=== PATIENT | male | born 1970 | race Caucasian/White ===

== ENCOUNTER 2025-01-14 10:40 | Inpatient (IN) | payer OTHER ==
[2025-01-14 11:21] VITALS: BMI 25.5
[2025-01-14] MEDS ORDERED: hydrOXYzine PAMOATE 25 MG CAPSULE (FP) PO PRN (11:52)
[2025-01-14] MEDS ORDERED: NICOTINE POLACRILEX 2 MG GUM BUC PRN (11:52)
[2025-01-14] MEDS ORDERED: ACETAMINOPHEN 325 MG TABLET (FP) PO PRN (11:52)
[2025-01-14] MEDS ORDERED: MAGNESIUM HYDROX 2400MG/30ML ORAL SUSPENSION 30 ML CUP PO PRN (11:52)
[2025-01-14] MEDS ORDERED: POLYETHYLENE GLYCOL (HEALTHYLAX) 3350 17 GM PACKET PO PRN (11:52)
[2025-01-14] MEDS ORDERED: BENZONATATE 200 MG CAPSULE PO PRN (11:52)
[2025-01-14] MEDS ORDERED: LOPERAMIDE HCL 2 MG CAPSULE PO PRN (11:52)
[2025-01-14] MEDS ORDERED: NICOTINE POLACRILEX 2 MG LOZENGE BC PRN (11:52)
[2025-01-14] MEDS ORDERED: P-EPHED 60MG/TRIPROLIDI 2.5MG TABLET PO PRN (11:52)
[2025-01-14] MEDS ORDERED: BENZOCAINE/MENTHOL (CHLORASEPTIC ) LOZENGE MM PRN (11:52)
[2025-01-14] MEDS ORDERED: NALOXONE (NARCAN) HCL 4 MG/0.1 ML SPRAY NS PRN (11:52)
[2025-01-14] MEDS ORDERED: IBUPROFEN 400 MG TABLET (FP) PO PRN (11:52)
[2025-01-14] MEDS ORDERED: guaiFENesin 600 MG TABLET.ER (FP) PO PRN (11:52)
[2025-01-14] MEDS: IBUPROFEN 600 MG TABLET (FP) PO PRN (17:31)
[2025-01-14] MEDS: THIAMINE 100 MG TABLET PO SCH (21:35)
[2025-01-14] MEDS: MELATONIN 5 MG TABLETS PO SCH (21:36)
[2025-01-15] MEDS: PRENATAL VITAMINS W/ FOLIC ACID TABLET (FP) PO SCH (09:15)
[2025-01-15 11:37] LABS: MCHC 31.3 g/dl (32.3-36.5); MEAN CELL VOLUME 73.5 fl (79.0-92.2); MEAN PLT VOLUME 10.6 fl (9.4-12.4); RDW 15.1 % (12.2-16.1)
[2025-01-15 13:07] LABS: GLUCOSE,RANDOM 71 mg/dL (74-106); TOT PROT 6.8 g/dl (6.4-8.2)
[2025-01-15 13:08] LABS: CO2 30 mmol/L (21-32)
[2025-01-15 13:10] LABS: ALK PHOS 53 U/L (40-150)
[2025-01-15 13:12] LABS: SGPT/ALT 40 U/L (0-55)
[2025-01-15 13:13] LABS: CREATININE 0.89 mg/dL (0.55-1.3); SGOT/AST 33 U/L (5-34)
[2025-01-15 13:37] LABS: HCV DIAGNOSTIC IN-HOUSE W/RFLX NON-REACTIVE (NONREACTIVE)
[2025-01-15 13:38] LABS: SYPHILIS W/ RPR CONF NON-REACTIVE (NONREACTIVE)
[2025-01-15 23:51] LABS: URINE APPEARANCE CLEAR; URINE BILIRUBIN NEGATIVE (NEGATIVE); URINE COLOR YELLOW; URINE GLUCOSE (UA) NEGATIVE (NEGATIVE); URINE KETONE NEGATIVE (NEGATIVE); URINE LEUK ESTERASE NEGATIVE (NEGATIVE); URINE NITRITE NEGATIVE (NEGATIVE); URINE PROTEIN NEGATIVE (NEGATIVE); URINE UROBILINOGEN 1.0 mg/dL (0.2-1.0)
[2025-01-17] MEDS: LIDOCAINE 5% TOPICAL PATCH TP SCH (09:54)
[2025-01-17] MEDS ORDERED: METHOCARBAMOL 500 MG TABLET PO PRN (10:26)
[2025-01-17] MEDS: MAG HYDROX/AL HYDROX/SIMETH 30 ML UNIT-DOSE CUP PO PRN (21:12)
[2025-01-17] MEDS: LIDOCAINE PATCH REMOVAL MC SCH (21:13)
[2025-01-18 06:25] VITALS: RESP 18; TEMP 96.9
[2025-01-18 09:24] VITALS: BP 110/74; PULSE 72
== END 2025-01-18 11:09 | disposition left against medical advice (07) | DRG 770 ==
LOC: YASAS 10:40 → Y3NR 13:08 → Y5N 01-15 12:26
PROVIDERS: ADMIT Psychiatry & Neurology Pain Medicine; ATTEND Psychiatry & Neurology Pain Medicine
PROC: HZ42ZZZ Group Counseling for Substance Abuse Treatment, Cognitive-Behavioral (ICD-10-PCS; principal; 2025-01-14)
DX: F10.20 Alcohol dependence, uncomplicated (principal); F14.20 Cocaine dependence, uncomplicated; F17.210 Nicotine dependence, cigarettes, uncomplicated; F41.8 Other specified anxiety disorders; M54.50 Low back pain, unspecified; G89.29 Other chronic pain
CPT/HCPCS: 36415; 80053; 80305; 80307; 81003; 85027; 86780; 86803; 87811